=== PATIENT | male | born 1955 | race Caucasian/White ===

== ENCOUNTER 2020-11-28 08:14 | Outpatient (CLI) | payer BC | END 2020-11-28 23:59 | disposition home or self-care (01) | LOC: CARD 08:14 | PROVIDERS: ATTEND Anesthesiology | DX: I25.9 Chronic ischemic heart disease, unspecified (principal); I10 Essential (primary) hypertension; I25.118 Atherosclerotic heart disease of native coronary artery with other forms of angina pectoris | CPT/HCPCS: 93017 ==